=== PATIENT | male | born 1975 | race Hispanic/Latino ===

== ENCOUNTER → 2018-09-11 08:11 | Outpatient (CLI) | payer BC, SELFPAY ==
[2018-09-11 10:36] LABS: Anion Gap 6 (5-15); BUN 11 mg/dL (7-18); BUN/Creat Ratio 13.3 RATIO (10-20); Calcium,Total 8.6 mg/dL (8.5-10.1); Chloride 107 mmol/L (98-107); Cholesterol 224 mg/dL (200); Creatinine, Serum 0.83 mg/dL (0.70-1.30); EST Glomerular Filtration Rate 107 mL/min (>60); Est Glom Filt Rate - Afr Amer 130 mL/min (>60); Glucose 81 mg/dL (74-106); High Density Lipoprotein 48 mg/dL; Potassium 4.1 mmol/L (3.5-5.1); Sodium Level 140 mmol/L (136-145); Triglycerides 149 mg/dL; Very Low Density Lipoprotein 30 mg/dL (5-40)
== END ==
PROVIDERS: Family Provider Family Medicine; PCP Family Medicine; Referring Provider Family Medicine; Visit Provider Family Medicine
DX: I10 Essential (primary) hypertension (principal); E78.00 Pure hypercholesterolemia, unspecified
CPT/HCPCS: 36415; 80048; 80061

== ENCOUNTER → 2019-11-23 11:14 | Outpatient (CLI) | payer BC, SELFPAY ==
[2014-12-03 20:50] VITALS: BMI 27.8
[2019-11-23 12:52] LABS: Absolute Neutrophil Count 4.1 X10^3/uL (2.0-7.7); Basophil# 0.02 X10^3/uL; Basophil% 0.3 % (0-1); Eosinophil# 0.22 X10^3/uL; Eosinophils% 3.2 % (0-5); Hematocrit 45.4 % (40-54); Hemoglobin 15.2 g/dL (13.0-16.5); Mean Corp Hgb Conc 33.5 g/dL (32-36); Mean Corpuscular Hgb 28.6 pg (27.0-32.0); Mean Corpuscular Volume 85.5 fL (80-94); Mean Platelet Vol. 10.8 fl (6.2-12.0); Monocyte# 0.55 X10^3/uL; Monocyte% 8.1 % (0-10); NRBC Flagged by Analyzer 0 % (0-5); Neutrophil # 4.06 X10^3/uL (2.7-7.7); Neutrophil % 59.8 % (47-70); Platelet Count 237 K/mm3 (150-450); RBC Distribution Width CV 12.4 % (11.6-14.6); RBC Distribution Width SD 37.8 fl (35.1-43.9); Red Blood Count 5.31 M/mm3 (4.6-6.2); White Blood Count 6.8 K/mm3 (4.4-11.0)
[2019-11-23 13:36] LABS: ALB/GLOB Ratio 1.1 RATIO (0.9-2.4); AST(SGOT) 18 U/L (15-37); Alanine Aminotransfer ALT/SGPT 36 U/L (16-61); Albumin, Serum 4.4 g/dL (3.2-5.0); Alkaline Phosphatase 72 U/L (45-117); Anion Gap 9 (5-15); BUN 11 mg/dL (7-18); BUN/Creat Ratio 11.5 RATIO (10-20); Calcium,Total 9.1 mg/dL (8.5-10.1); Chloride 104 mmol/L (98-107); Creatinine, Serum 0.96 mg/dL (0.70-1.30); EST Glomerular Filtration Rate 91 mL/min (>60); Est Glom Filt Rate - Afr Amer 110 mL/min (>60); Glucose 88 mg/dL (74-106); Potassium 4.1 mmol/L (3.5-5.1); Protein, Total 8.4 g/dL (6.4-8.2); Sodium Level 137 mmol/L (136-145)
== END ==
PROVIDERS: PCP Family Medicine; Referring Provider Family Medicine; Visit Provider Family Medicine
DX: K29.70 Gastritis, unspecified, without bleeding (principal)
CPT/HCPCS: 36415; 80053; 85025

== ENCOUNTER → 2020-03-19 10:44 | Outpatient (CLI) | payer BC, SELFPAY ==
[2020-03-19 12:44] LABS: Hematocrit 46.1 % (40-54); Hemoglobin 14.6 g/dL (13.0-16.5); Mean Corp Hgb Conc 31.7 g/dL (32-36); Mean Corpuscular Hgb 28.3 pg (27.0-32.0); Mean Corpuscular Volume 89.5 fL (80-94); Mean Platelet Vol. 11.1 fl (6.2-12.0); Platelet Count 242 K/mm3 (150-450); RBC Distribution Width SD 42.7 fl (35.1-43.9); Red Blood Count 5.15 M/mm3 (4.6-6.2); White Blood Count 6.8 K/mm3 (4.4-11.0)
[2020-03-19 13:04] LABS: Iron 68 ug/dL (65-175)
== END ==
PROVIDERS: PCP Family Medicine; Referring Provider Family Medicine; Visit Provider Internal Medicine Gastroenterology
DX: K92.1 Melena (principal)
CPT/HCPCS: 36415; 83540; 85027

== ENCOUNTER → 2020-03-21 10:39 | Outpatient (CLI) | payer BC, SELFPAY | PROVIDERS: PCP Family Medicine; Referring Provider Internal Medicine Gastroenterology; Visit Provider Internal Medicine Gastroenterology | DX: Z11.59 Encounter for screening for other viral diseases (principal) | CPT/HCPCS: 87635; C9803; U0003 ==

== ENCOUNTER → 2020-06-17 09:56 | Outpatient (CLI) | payer BC, SELFPAY ==
[2014-12-03 20:50] VITALS: BMI 27.8
[2020-06-17 13:03] LABS: PSA,Total - Annual Screen 0.83 ng/mL (0.00-4.00); Prolactin 11.5 ng/mL
== END ==
PROVIDERS: PCP Family Medicine; Visit Provider Family Medicine
DX: N52.9 Male erectile dysfunction, unspecified (principal)
CPT/HCPCS: 36415; 84146; 84153; 84403; G0103

== ENCOUNTER → 2020-12-04 09:05 | Outpatient (CLI) | payer BC, SELFPAY ==
[2014-12-03 20:50] VITALS: BMI 27.8
[2020-12-04 10:08] LABS: Absolute Lymphocyte Count 2.24 X10^3/uL (0.83-4.51); Absolute Neutrophil Count 3.7 X10^3/uL (2.0-7.7); Basophil# 0.02 X10^3/uL; Basophil% 0.3 % (0-1); Eosinophils% 4.4 % (0-5); Hemoglobin 13.8 g/dL (13.0-16.5); Lymphocyte # 2.24 X10^3/ul (0.83-4.51); Lymphocyte % 32.5 % (19-41); Mean Corp Hgb Conc 32.9 g/dL (32-36); Mean Corpuscular Hgb 28.2 pg (27.0-32.0); Mean Corpuscular Volume 85.9 fL (80-94); Mean Platelet Vol. 10.8 fl (6.2-12.0); Monocyte# 0.62 X10^3/uL; NRBC Flagged by Analyzer 0 % (0-5); Neutrophil % 53.7 % (47-70); Platelet Count 262 K/mm3 (150-450); RBC Distribution Width CV 12.7 % (11.6-14.6); RBC Distribution Width SD 39.6 fl (35.1-43.9); Red Blood Count 4.89 M/mm3 (4.6-6.2); White Blood Count 6.9 K/mm3 (4.4-11.0)
[2020-12-04 10:52] LABS: ALB/GLOB Ratio 1.1 RATIO (0.9-2.4); AST(SGOT) 20 U/L (15-37); Alanine Aminotransfer ALT/SGPT 34 U/L (16-61); Albumin, Serum 3.9 g/dL (3.2-5.0); Alkaline Phosphatase 76 U/L (45-117); Anion Gap 8 (5-15); BUN 18 mg/dL (7-18); BUN/Creat Ratio 19.5 RATIO (10-20); Calcium,Total 8.6 mg/dL (8.5-10.1); Chloride 106 mmol/L (98-107); Cholesterol 176 mg/dL (200); Creatinine, Serum 0.92 mg/dL (0.70-1.30); EST Glomerular Filtration Rate 94 mL/min (>60); Est Glom Filt Rate - Afr Amer 114 mL/min (>60); Globulin 3.5 g/dL (2.2-4.2); Glucose 83 mg/dL (74-106); High Density Lipoprotein 40 mg/dL; Potassium 3.8 mmol/L (3.5-5.1); Protein, Total 7.4 g/dL (6.4-8.2); Sodium Level 138 mmol/L (136-145); Triglycerides 178 mg/dL; Very Low Density Lipoprotein 36 mg/dL (5-40)
== END ==
PROVIDERS: PCP Family Medicine; Referring Provider Family Medicine; Visit Provider Family Medicine
DX: I10 Essential (primary) hypertension (principal)
CPT/HCPCS: 36415; 80053; 80061; 85025

== ENCOUNTER → 2021-05-25 08:55 | Outpatient (CLI) | payer BC, SELFPAY ==
[2021-05-25 10:14] LABS: Anion Gap 6 (5-15); BUN 11 mg/dL (7-18); BUN/Creat Ratio 11.9 RATIO (10-20); Calcium,Total 8.7 mg/dL (8.5-10.1); Chloride 103 mmol/L (98-107); Creatinine, Serum 0.92 mg/dL (0.70-1.30); EST Glomerular Filtration Rate 94 mL/min (>60); Est Glom Filt Rate - Afr Amer 114 mL/min (>60); Glucose 86 mg/dL (74-106); Potassium 3.8 mmol/L (3.5-5.1); Sodium Level 137 mmol/L (136-145)
== END ==
PROVIDERS: PCP Nurse Practitioner Family; Referring Provider Nurse Practitioner Family; Visit Provider Nurse Practitioner Family
DX: I10 Essential (primary) hypertension (principal)
CPT/HCPCS: 36415; 80048

== ENCOUNTER 2025-07-08 09:16 | Emergency (ER) | payer BC, SELFPAY ==
[2025-07-08 09:17] VITALS: BP 171/97; PULSE 72; RESP 14; TEMP 36.5; O2SAT 99; BMI 28.2
--- NOTE | 2025-07-08 09:42 | EX.ED.DYSGE1 ---
HPI History of Present Illness Chief Complaint: Fall Informant: patient and family Narrative Narrative: Patient is a 50-year-old male with no significant PMHx presenting to the ED after two falls yesterday morning. - Reports consuming approximately 8 beers 2d ago, leading to two falls the following morning, each while attempting to urinate. Describes feeling lightheaded and experiencing a sensation of no energy in his legs during the falls. Sustained minor facial injuries, specifically to the lips, during the second fall; denies other injuries to arms or legs. No LOC/syncope. - Took Tylenol for pain, which has improved today; denies significant pain currently. - Consumed water and Gatorade all day yesterday; denies alcohol consumption yesterday and today. - Urinated today without issues; denies current symptoms. - Regularly consumes 5-6 beers daily; denies withdrawal symptoms today. States typically because of drinking alcohol he does not drink water or other fluids well - Recent heavy drinking on Tuesday, including tequila and beer; abstained from alcohol Tuesday through Tuesday, feeling great during that time. Then binged again for the weekend; now here on Tuesday. [facility] Medical History Hypertension Home Medications ?Medication ?Instructions ?Recorded ?Last Taken ?Type No Known/Unobtainable [No Known 12/03/14 Unknown History Home Medications] Allergy/AdvReac Type Severity Reaction Status Date / Time No Known Allergies Allergy Verified 07/08/25 09:21 Social History (Updated 07/08/25 @ 09:[address] Petr Lee MD) Smoking Status: Never smoker alcohol intake: current alcohol intake frequency: a few times a week Alcohol type: beer and hard liquor ROS ROS ED Constitutional Constitutional ED: Denies chills or fever(s) Eyes Eyes: Denies change in vision or diplopia ENT ENT ED: Denies facial pain, rhinorrhea or sore throat Cardiovascular Cardiovascular: Denies chest pain or palpitations Respiratory/Chest Respiratory/Chest: Denies cough or dyspnea Gastrointestinal Gastrointestinal: Denies abdominal pain, diarrhea, nausea or vomiting Genitourinary Genitourinary ED: Denies dysuria or hematuria Musculoskeletal Musculoskeletal: Denies back pain or neck pain Integumentary Reports Abrasions; Denies abscess or rash Neurologic Neurologic: Denies headache(s), paresthesias or weakness Psychiatric Psychiatric: Denies anxiety or suicidal thoughts EXAM Physical Exam Const Vital Signs: 07/08/25 09:17 07/08/25 09:31 Temperature 97.7 F L Temperature Source Oral Pulse Rate 72 Respiratory Rate 14 Respiratory Effort Normal Non-Labored Blood Pressure 171/97 H Blood Pressure Mean 121 Pulse Ox 99 Oxygen Delivery Method Room Air Positive well nourished and well developed General Appearance ED: well developed and NAD HEENT Reports moist mucous membranes HEENT Narrative: Minor contusion right maxilla/cheek without periorbital ecchymosis, tenderness, crepitance, or swelling. Minor contusion over the bridge of the nose without tenderness or evidence of recent epistaxis no deformity or swelling. Multiple healing abrasions to the upper and lower lips, one of them is a superficial laceration at the mucosa just posterior to the vermilion of the lower lip but there is no gaping or opening right now. Dentition is all tight and without obvious trauma. normocephalic and atraumatic Eyes PERRL and EOMs intact bilaterally Neck full ROM and supple Resp normal respiratory effort and clear to auscultation bilaterally Cardio regular rate, regular rhythm and no murmurs GI non-tender and non-distended Auscultation: normoactive bowel sounds Palpation: soft Back/Spine no CVA tenderness General Back: other FROM Extremity normal to inspection General Extremety ED: Negative for edema, pulses abnormal or tenderness General Extremity: Negative for edema or pulses abnormal Neuro oriented x3, CN's II-XII intact bilaterally and no sensory deficits noted Sensorium / Orientation: awake and alert Motor Exam: strength 5/5 throughout Skin no rashes or lesions noted and no wounds MDM MDM MDM Narrative Medical decision making narrative: Assessment: The patient is a 50-year-old male presenting for two falls with near syncope after consuming approximately eight beers the prior evening. Episodes occurred while standing to urinate and were preceded by light-headedness and lower-extremity weakness. He now reports only mild facial discomfort. Exam shows minor abrasions/contusions to the lower lip and face without laceration requiring repair; dentition intact, no focal neurologic deficits. Basic labs show glucose 105, sodium 135, BUN 19, creatinine 0.94?mild pre-renal pattern consistent with dehydration; no electrolyte derangements. Blood pressure on arrival 171/97. Near syncope is most likely secondary to alcohol-induced dehydration compounded by Valsalva while voiding. No evidence of intracranial injury or need for IV fluids given current asymptomatic status and adequate oral intake. CT face considered but given that the findings are relatively mild and he has no bony tenderness, fracture is thought to be very unlikely. Plan: - Supportive care provided; facial abrasions cleansed, no suturing required - Oral hydration encouraged; patient counseled to alternate non-alcoholic fluids when drinking - Repeat blood pressure prior to discharge; advised outpatient PCP follow-up for hypertension - Discussed alcohol use; patient declines cessation resources at this time - Discharged home in stable condition with family, return precautions reviewed Diagnostics: - Basic metabolic panel: glucose 105 mg/dL, sodium 135 mmol/L, BUN 19 mg/dL, creatinine 0.94 mg/dL Portions of this note were generated using voice recognition software ([employer] Dictation). I have reviewed the contents and every effort has been made to ensure accuracy; however, inadvertent errors in grammar, spelling, punctuation, or word choice may occur, that were not noted before signing the document and should not alter the intended clinical meaning. History & Record Review Discussion w/independent historian: Patient and Family Lab Data Attestation: I reviewed the patient's lab results. Labs: Laboratory Results - last 24 hr 07/08/25 09:50 WBC 6.5 RBC 5.30 Hgb 15.3 Hct 46.3 MCV 87.4 MCH 28.9 MCHC 33.0 RDW Std Deviation 39.8 RDW Coeff of [place] 12.5 Plt Count 274 MPV 10.1 Immature Gran % (Auto) 0.300 Neut % (Auto) 57.2 Lymph % (Auto) 28.2 [place] % (Auto) 10.9 H Eos % (Auto) 2.8 Baso % (Auto) 0.6 Absolute Neuts (auto) 3.7 Absolute Lymphs (auto) 1.82 Nucleated RBC % 0 Sodium 135 Potassium 4.1 Chloride 99 Carbon Dioxide 24.9 Anion Gap 11 BUN 19 Creatinine 0.94 Estim Creat Clear Calc 108.89 Est GFR (MDRD) Non-Af 99 BUN/Creatinine Ratio 20.4 H Glucose 105 H Calcium 9.5 Discharge Plan Triage Chief Complaint: Fall ED Provider: Petr Lee Dx/Rx/DC Orders Clinical Impression: Vasovagal near syncope, Acute dehydration, Alcohol abuse, uncomplicated, Contusion of face, Abrasion of lip, Accelerated hypertension Instructions: ED Dehydration (Adult), ED Near-Fainting- Vagal Reaction Prescriptions: No Action No Known Home Medications Primary Care Provider: Daly Nicole Referrals: Doctor,Your [Non-Staff, None] - As soon as possible Activity Restrictions/Additional Instructions: - Drink plenty of non-alcoholic fluids, especially water, whenever you consume alcohol and throughout the day to prevent dehydration. Cut back on daily alcohol intake and avoid heavy drinking to reduce episodes of lightheadedness and falls. - Allow the minor facial bruises and lip cut to heal on their own; keep the area clean and watch for any signs of infection (redness, increased pain, or discharge). - Your basic lab tests (blood sugar, electrolytes, kidney function) were within normal limits. - Have your blood pressure rechecked and discuss management with your primary care provider, given today?s elevated reading. Print Language: Tamazight Disposition Disposition: Home, Self Care
[2025-07-08 09:57] LABS: Hematocrit 46.3 % (40-54); Hemoglobin 15.3 g/dL (13.0-16.5); Immature Granulocytes Count 0.020 X10^3/uL (0.0-0.0); Mean Corp Hgb Conc 33.0 g/dL (32-36); Mean Corpuscular Volume 87.4 fL (80-94); Mean Platelet Vol. 10.1 fl (6.2-12.0); NRBC Flagged by Analyzer 0 % (0-5); Platelet Count 274 K/mm3 (150-450); RBC Distribution Width CV 12.5 % (11.6-14.6); RBC Distribution Width SD 39.8 fl (35.1-43.9); Red Blood Count 5.30 M/mm3 (4.6-6.2); White Blood Count 6.5 K/mm3 (4.4-11.0)
[2025-07-08 10:24] LABS: Anion Gap 11 (7-18); BUN 19 mg/dL (4-19); BUN/Creat Ratio 20.4 RATIO (10-20); Calcium,Total 9.5 mg/dL (7.6-11.0); Carbon Dioxide 24.9 mmol/L (20.0-29.0); Chloride 99 mmol/L (96-106); Estimated Creatinine Clearance 108.89 ml/min (50-250); Glucose 105 mg/dL (70-99); Potassium 4.1 mmol/L (3.5-5.1)
[2025-07-08 11:17] VITALS: PULSE 68; RESP 14; O2SAT 98
[2025-07-08 11:22] VITALS: BP 171/97; PULSE 68; RESP 14; TEMP 36.5; O2SAT 98
== END 2025-07-08 11:23 | disposition home or self-care (01) ==
PROVIDERS: Emergency Provider Emergency Medicine; PCP Nurse Practitioner Family; Visit Provider Emergency Medicine
DX: S00.83XA Contusion of other part of head, initial encounter (principal); S00.33XA Contusion of nose, initial encounter; S00.511A Abrasion of lip, initial encounter; W18.39XA Other fall on same level, initial encounter; R55 Syncope and collapse; E86.0 Dehydration; I10 Essential (primary) hypertension; F10.10 Alcohol abuse, uncomplicated; Y90.9 Presence of alcohol in blood, level not specified
CPT/HCPCS: 80048; 85025; 99282